=== PATIENT | female | born 1995 | race Two or more races ===

== ENCOUNTER 2017-07-29 04:37 | Inpatient (IN) | payer OTHER ==
[2017-07-29] MEDS ORDERED: BUTORPHANOL TARTRATE 1 MG/ML VIAL IVPB ONE (05:15)
[2017-07-29] MEDS ORDERED: MAGNESIUM 4GM/H20 - 100 ML IVPB SCH (05:15)
[2017-07-29] MEDS ORDERED: PROMETHAZINE HCL 25 MG/1 ML VIAL IVPUSH ONE (05:15)
[2017-07-29] MEDS ORDERED: MAGNESIUM SULFATE 20GM/500ML - 500 ML IVPB SCH (05:15)
[2017-07-29] MEDS ORDERED: ELECTROLYTE-148 SOLN 1,000 ML IV SCH (05:15)
--- NOTE | 2017-07-29 05:25 | HP ---
Past Medical History - Admission Chief Complaint: Labor pain History of Present Illness: 21 yo , @ 40 weeks gestation, EDC 07/25/17, presented c/o labor pain. Upon admission there was evidence of elevated blood pressure. She denies any headache, blurry vision nor epigastric pain. History Source: Patient Limitations to Obtaining History: No Limitations - Past Medical History ...: 1 ...Para: 0 ...EDC by Sono: 07/25/17 - Past Surgical History Past Surgical History: Yes: None Hx Myomectomy: No Hx Transabdominal Cerclage: No - Smoking History Smoking history: Never smoked - Alcohol/Substance Use Hx Alcohol Use: No History of Substance Use: reports: None - Social History Usual Living Arrangement: Yes: With Significant Other History of Recent Travel: No Home Medications - Allergies Allergies/Adverse Reactions: Allergies Allergy/AdvReac Type Severity Reaction Status Date / Time No Known Allergies Allergy Verified 06/08/16 09:15 - Home Medications Home Medications: Ambulatory Orders Oxycodone HCl/Acetaminophen [Percocet 5-325 mg Tablet] 1 tab PO Q4H #20 tablet MDD 6 06/09/16 Family Disease History - Family Disease History Family History: Unremarkable Review of Systems - Review of Systems Constitutional: reports: No Symptoms Eyes: reports: No Symptoms HENT: reports: No Symptoms Neck: reports: No Symptoms Cardiovascular: reports: No Symptoms Respiratory: reports: No Symptoms Gastrointestinal: reports: No Symptoms Genitourinary: reports: Pain Neurological: reports: No Symptoms Psychiatric: reports: No Symptoms Pain Intensity: 9 Physical Exam - Maternity Constitutional: Yes: Well Nourished Eyes: Yes: Conjunctiva Clear HENT: Yes: Atraumatic Neck: Yes: Supple Cardiovascular: Yes: Regular Rate and Rhythm Lungs: Clear to auscultation - Abdominal Exam/OB Number of Fetuses: Single Presentation: Vertex - Vaginal Exam/OB Dilatation (cm): 2 Effacement (%): 90 Amniotic Membrane Status: Intact Presentation: Vertex/Position Station: -2 - Physical Exam Edema: No Integumentary: Yes: WNL ...Motor Strength: WNL Psychiatric: Yes: Alert, Oriented Problem List - Problems (1) Pain during labor Code(s): O99.89 - OTH DISEASES AND CONDITIONS COMPL PREG/CHLDBRTH R52 - PAIN, UNSPECIFIED (2) PIH ( induced hypertension), antepartum Code(s): O13.9 - GESTATIONAL HTN W/O SIGNIFICANT PROTEINURIA, UNSP TRIMESTER Assessment/Plan IUP @ 40 weeks Active Labor induced hypertension PIH Labs Magnesium sulfate Analgesia as needed
[2017-07-29 05:45] LABS: BASOPHIL 0.4 % (0-2.0); EOSINOPHIL 1.1 % (0-4.5); MCH 24.2 pg (25.7-33.7); MCHC 31.7 g/dl (32.0-36.0); MEAN CELL VOLUME 76.2 fl (80-96); MEAN PLT VOLUME 9.7 fl (7.5-11.1); PLATELET COUNT 132 K/MM3 (134-434); RDW 15.4 % (11.6-15.6); WHITE BLOOD COUNT 9.1 K/mm3 (4.0-10.0)
[2017-07-29 06:00] LABS: ACTIVATED PTT 25.3 SECONDS (26.9-34.4)
[2017-07-29 06:01] LABS: INR 0.95 (0.82-1.09); PROTHROMBIN TIME (PATIENT) 10.4 SEC (9.98-11.88)
[2017-07-29 06:11] VITALS: BMI 24.6
[2017-07-29 06:24] LABS: ANION GAP 12 (8-16); CALCIUM 8.5 mg/dL (8.5-10.1); CO2 21 mmol/L (21-32); CREATININE 0.8 mg/dL (0.55-1.02); GLUCOSE,RANDOM 80 mg/dL (74-106); SGOT/AST 20 U/L (15-37); SGPT/ALT 13 U/L (12-78); URIC ACID 6.9 mg/dL (2.6-7.2)
[2017-07-29 07:29] LABS: URINE APPEARANCE CLEAR; URINE BILIRUBIN NEGATIVE (NEGATIVE); URINE BLOOD 2+ (NEGATIVE); URINE COLOR STRAW; URINE GLUCOSE (UA) NEGATIVE (NEGATIVE); URINE KETONE NEGATIVE (NEGATIVE); URINE LEUK ESTERASE NEGATIVE (NEGATIVE); URINE NITRITE NEGATIVE (NEGATIVE); URINE PROTEIN NEGATIVE (NEGATIVE); URINE UROBILINOGEN NEGATIVE mg/dL (0.2-1.0)
[2017-07-29 08:04] LABS: URINE BACTERIA RARE /hpf (NONE SEEN); URINE MUCUS RARE; URINE RBC 2 /hpf (0-3); URINE WBC 1 /hpf (3-5)
[2017-07-29] MEDS: FENTANYL/BUPIVACAINE/NS/PF - PCEA - 50 ML DISP.SYRIN EP SCH (10:45)
--- NOTE | 2017-07-29 14:47 | PN ---
Ante-Partal Exam - Subjective Vital Signs: Vital Signs Temperature 99.2 F 07/29/17 12:00 Pulse Rate 69 07/29/17 13:00 Respiratory Rate 18 07/29/17 13:00 Blood Pressure 117/78 07/29/17 13:00 O2 Sat by Pulse Oximetry (%) 97 07/29/17 13:00 Bleeding: No Headache: No Visual changes: No Right upper quadrant pain: No - Contractions Contractions: Yes Regularity: Regular Intensity: Mild Monitor Mode: External - Exam during Labor Heart Rate: 150 Variability: Moderate Heart Rate Location: Midline Category: I Monitor Accelerations: Present Monitor Decelerations: None Exam: Vaginal Dilatation (cm): 5 Effacement (%): 80 Amniotic Membrane Status: Ruptured Nitrazine Test: Positive Amniotic Fluid: Meconium Stained Meconium Staining: Moderate Presentation: Vertex Station: 0
[2017-07-29] MEDS ORDERED: OXYTOCIN 15 UNITS/ LR 250 ML 250 ML IV SCH (15:30)
--- NOTE | 2017-07-29 16:31 | PN ---
Ante-Partal Exam - Subjective Vital Signs: Vital Signs Temperature 99.2 F 07/29/17 12:00 Pulse Rate 67 07/29/17 15:30 Respiratory Rate 18 07/29/17 15:30 Blood Pressure 147/106 07/29/17 15:30 O2 Sat by Pulse Oximetry (%) 99 07/29/17 15:30 Bleeding: No Headache: No Visual changes: No Right upper quadrant pain: No - Contractions Contractions: Yes Regularity: Regular Intensity: Moderate Monitor Mode: External - Exam during Labor Heart Rate: 150 Variability: Moderate Heart Rate Location: Midline Category: I Monitor Accelerations: Present Monitor Decelerations: None Exam: Vaginal Dilatation (cm): 10 Amniotic Membrane Status: Ruptured Nitrazine Test: Positive Amniotic Fluid: Meconium Stained Meconium Staining: Light Presentation: Vertex Station: 0 - Assessment/Plan Assessment/Plan: as above will start to push cat 1
[2017-07-29] MEDS ORDERED: METHYLERGONOVINE MALEATE 0.2 MG/1 ML AMP IM PRN (17:40)
[2017-07-29] MEDS ORDERED: BENZOCAINE 28 GM HEMORRHOIDAL OINTMENT TP PRN (17:40)
[2017-07-29] MEDS ORDERED: BISACODYL 10 MG SUPP.RECT RC PRN (17:40)
[2017-07-29] MEDS ORDERED: IBUPROFEN 600 MG TABLET (FP) PO PRN (17:40)
[2017-07-29] MEDS ORDERED: WITCH HAZEL 50% (TUCKS) 40 PAD/JAR PAD TP PRN (17:40)
[2017-07-29] MEDS ORDERED: BENZOCAINE 20% 57 GM BOTTLE TP PRN (17:40)
[2017-07-29] MEDS ORDERED: OXYTOCIN 20 UNITS in 0.9% NS 1,000 ML IV SCH (17:45)
--- NOTE | 2017-07-29 17:47 | PN ---
Delivery - Delivery Vaginal Delivery: No Problems Type of Anesthesia: Local, Epidural Episiotomy/Laceration: Midline EBL (cc): 350 Delivery, Single - Feeding Plan Initial Plan: Elected not to breastfeed exclusively throughout hospitalization
[2017-07-30 06:59] LABS: BASOPHIL 0.4 % (0-2.0); EOSINOPHIL 0.5 % (0-4.5); MCH 24.1 pg (25.7-33.7); MCHC 31.9 g/dl (32.0-36.0); MEAN CELL VOLUME 75.6 fl (80-96); MEAN PLT VOLUME 9.1 fl (7.5-11.1); NEUTROPHILS 68.8 % (42.8-82.8); PLATELET COUNT 104 K/MM3 (134-434); RDW 15.6 % (11.6-15.6); WHITE BLOOD COUNT 9.7 K/mm3 (4.0-10.0)
--- NOTE | 2017-07-30 07:30 | PN ---
Post Progress Note Post Day: 1 Type of Delivery: Vital Signs: Vital Signs Temperature 99.0 F 07/30/17 05:00 Pulse Rate 74 07/30/17 05:00 Respiratory Rate 20 07/30/17 05:00 Blood Pressure 133/75 07/30/17 05:00 O2 Sat by Pulse Oximetry (%) 100 07/29/17 19:15 Breast Exam: Yes: Soft Uterus: Yes: Fundus Firm Abdomen/GI: Yes: Abdomen soft Lochia: Yes: Rubra Lochia, amount: Small Extremities: Yes: Calves non-tender Perineum: Yes: Intact Activity: Ambulating - Labs Labs: CBC WBC 9.7 K/mm3 (4.0-10.0) 07/30/17 06:25 RBC 3.13 M/mm3 (3.60-5.2) L D 07/30/17 06:25 Hgb 7.6 GM/dL (10.7-15.3) L D 07/30/17 06:25 Hct 23.7 % (32.4-45.2) L D 07/30/17 06:25 MCV 75.6 fl (80-96) L 07/30/17 06:25 MCH 24.1 pg (25.7-33.7) L 07/30/17 06:25 MCHC 31.9 g/dl (32.0-36.0) L 07/30/17 06:25 RDW 15.6 % (11.6-15.6) 07/30/17 06:25 Plt Count 104 K/MM3 (134-434) L D 07/30/17 06:25 MPV 9.1 fl (7.5-11.1) 07/30/17 06:25 Neutrophils % 68.8 % (42.8-82.8) 07/30/17 06:25 Lymphocytes % 22.2 % (8-40) 07/30/17 06:25 Monocytes % 8.1 % (3.8-10.2) 07/30/17 06:25 Eosinophils % 0.5 % (0-4.5) 07/30/17 06:25 Basophils % 0.4 % (0-2.0) 07/30/17 06:25 Retic Count 1.95 % (0.5-1.5) H 07/29/17 05:25 Assessment/Plan ppd 1 no issues iron
[2017-07-30] MEDS ORDERED: DIPHTH,PERTUSS(ACELL),TET 0.5 ML DISP.SYRIN IM ONE (10:00)
[2017-07-30] MEDS ORDERED: FLU VACC QS2017-18 36MOS UP/PF 60 MCG/0.5 ML SYRINGE IM ONE (10:00)
[2017-07-30] MEDS: LABETALOL HCL 100 MG TABLET (FP) PO SCH ×2 (13:00→21:45)
[2017-07-30] MEDS: FENTANYL/BUPIVACAINE/NS/PF - PCEA - 50 ML DISP.SYRIN EP SCH (19:32)
[2017-07-30] MEDS: SENNOSIDES/DOCUSATE COMBO (SENNA PLUS) TABLET (UD) PO PRN (21:46)
[2017-07-31] MEDS: ACETAMINOPHEN 325 MG TABLET (FP) PO PRN ×2 (07:59→20:17)
[2017-07-31] MEDS: LABETALOL HCL 200 MG TABLET (FP) PO SCH ×2 (09:41→22:18)
--- NOTE | 2017-07-31 11:56 | PN ---
Post Progress Note - Subjective Subjective: c/o headache in AM , after BP meds 200 mg labetalol taken she does not have headache she does not c/o dizziness Post Day: 2 Type of Delivery: Vital Signs: Vital Signs Temperature 99.3 F 07/31/17 09:23 Pulse Rate 71 07/31/17 09:23 Respiratory Rate 20 07/31/17 09:23 Blood Pressure 145/90 07/31/17 09:23 O2 Sat by Pulse Oximetry (%) 100 07/29/17 19:15 Selected Entries 07/30/17 07/30/17 07/31/17 17:00 21:00 01:00 Temperature 98.9 F 99.0 F 98.0 F Pulse Rate 83 65 80 Blood Pressure 146/84 147/80 131/83 07/31/17 06:00 Temperature 98.0 F Pulse Rate 71 Blood Pressure 160/100 Repeat BP at 11.30am 136/86 Breast Exam: Yes: Soft, Other (BF ). No: Engorged Uterus: Yes: Fundus Firm, Fundus below umbilicus Lochia, amount: Small Extremities: Yes: Calves non-tender Perineum: Yes: Episiotomy Activity: Ambulating - Labs Labs: CBC WBC 9.7 K/mm3 (4.0-10.0) 07/30/17 06:25 RBC 3.13 M/mm3 (3.60-5.2) L D 07/30/17 06:25 Hgb 7.6 GM/dL (10.7-15.3) L D 07/30/17 06:25 Hct 23.7 % (32.4-45.2) L D 07/30/17 06:25 MCV 75.6 fl (80-96) L 07/30/17 06:25 MCH 24.1 pg (25.7-33.7) L 07/30/17 06:25 MCHC 31.9 g/dl (32.0-36.0) L 07/30/17 06:25 RDW 15.6 % (11.6-15.6) 07/30/17 06:25 Plt Count 104 K/MM3 (134-434) L D 07/30/17 06:25 MPV 9.1 fl (7.5-11.1) 07/30/17 06:25 Neutrophils % 68.8 % (42.8-82.8) 07/30/17 06:25 Lymphocytes % 22.2 % (8-40) 07/30/17 06:25 Monocytes % 8.1 % (3.8-10.2) 07/30/17 06:25 Eosinophils % 0.5 % (0-4.5) 07/30/17 06:25 Basophils % 0.4 % (0-2.0) 07/30/17 06:25 Retic Count 1.95 % (0.5-1.5) H 07/29/17 05:25 Haptoglobin 90 mg/dL (34-200) 07/29/17 05:25 Assessment/Plan pt s/p vag, delivery, severe anemia , labile HTN on Labetalol 100 mg PO BID , changed to 200 mg bid in AM today. watch for BP Anemia counselled, declined Blood Transfusion Consult Dr Garza regarding discharge clearance
[2017-07-31] MEDS: FENTANYL/BUPIVACAINE/NS/PF - PCEA - 50 ML DISP.SYRIN EP SCH (12:58)
[2017-07-31] MEDS: SENNOSIDES/DOCUSATE COMBO (SENNA PLUS) TABLET (UD) PO PRN (20:18)
[2017-08-01] MEDS: LABETALOL HCL 200 MG TABLET (FP) PO SCH ×2 (08:24→10:05)
--- NOTE | 2017-08-01 09:58 | DS ---
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 Signs: Vital Signs Temperature 98.6 F 08/01/17 07:50 Pulse Rate 71 08/01/17 07:50 Respiratory Rate 20 08/01/17 07:50 Blood Pressure 141/91 08/01/17 09:25 O2 Sat by Pulse Oximetry (%) 100 07/29/17 19:15 Constitutional: Yes: Well Nourished Eyes: Yes: Conjunctiva Clear HENT: Yes: Atraumatic Neck: Yes: Supple Cardiovascular: Yes: Regular Rate and Rhythm Respiratory: Yes: Regular Gastrointestinal: Yes: Normal Bowel Sounds Pelvis: Yes: WNL External Genitalia: Yes: Normal Vaginal Exam: Yes: Normal Cervix: Yes: Normal Uterus: Yes: Firm ....Post : Yes: Uterus firm, Moderate lochia serosa Musculoskeletal: Yes: WNL Extremities: Yes: WNL Neurological: Yes: Alert, Oriented ...Motor Strength: WNL Psychiatric: Yes: Alert, Oriented Labs: CBC, BMP 07/30/17 06:25 07/29/17 05:25 Delivery - Delivery Vaginal Delivery: No Problems Type of Anesthesia: Local, Epidural Episiotomy/Laceration: Midline EBL (cc): 350 Delivery, Single - Stages of Labor Date 1st Stage Initiatied: 07/29/17 Time 1st Stage Initiated: 00:00 Date 2nd Stage Initiated: 07/29/17 Time 2nd Stage Initiated: 16:45 Date of Delivery: 07/29/17 Time of Delivery: 17:24 Time Placenta Delivered: 17:30 - 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 Labetalol prescribed as inpatient. Condition: Good - Instructions Diet, Activity, Other Instructions: see in 6 weeks Referrals: Richard Santos MD [Staff Physician] - Disposition: HOME - Home Medications Comprehensive Discharge Medication List: Ambulatory Orders Ferrous Gluconate [Iron] 256 mg PO DAILY 07/29/17 Vit No.130/Iron/FA [ Vitamins] 1 each PO DAILY 07/29/17 Labetalol HCl [Normodyne -] 200 mg PO BID #14 tablet 08/01/17
--- NOTE | 2017-08-01 11:28 | CON.NEP ---
Consult Consult Specialty:: Nephrology Referred by:: Dr. Garza Reason for Consultation:: Hypertension - History of Present Illness Chief Complaint: Labor History of Present Illness: This is a 21 year old woman with no significant PMhx who presented at 40 week gestation with labor pains and found to have elevated BP that remained elevated . Pt denies any history of hypertension or family history of hypertension. No LFT abnormalities or proteinuira noted this admission. Pt denies any uncontrolled pain. No SAAB, CP, blurry vision, N/V/D. Started on Labetalol Q12h, dose titated to 200mg yesterday. [employer] services used, [employer] # [id number] - History Source History Provided By: Patient, Caregiver Limitations to Obtaining History: No Limitations - Past Medical History ...LMP: 05/23/16 - Past Surgical History Past Surgical History: Yes: None - Alcohol/Substance Use Hx Alcohol Use: No History of Substance Use: reports: None - Smoking History Smoking history: Never smoked Have you smoked in the past 12 months: No - Social History History of Recent Travel: No Home Medications - Allergies Allergies/Adverse Reactions: Allergies Allergy/AdvReac Type Severity Reaction Status Date / Time No Known Allergies Allergy Verified 07/29/17 07:26 - Home Medications Home Medications: Ambulatory Orders Ferrous Gluconate [Iron] 256 mg PO DAILY 07/29/17 Vit No.130/Iron/FA [ Vitamins] 1 each PO DAILY 07/29/17 Labetalol HCl [Normodyne -] 200 mg PO BID #14 tablet 08/01/17 Family Disease History - Family Disease History Family History: Unremarkable Review of Systems - Review of Systems Constitutional: reports: No Symptoms Eyes: reports: No Symptoms HENT: reports: No Symptoms Neck: reports: No Symptoms Cardiovascular: reports: No Symptoms Respiratory: reports: No Symptoms Gastrointestinal: reports: No Symptoms Genitourinary: reports: No Symptoms Musculoskeletal: reports: No Symptoms Integumentary: reports: No Symptoms Nephrology Consult - Height Height: 5 ft - Weight Weight: 126 lb - BMI Body Mass Index (BMI): 24.6 - Lab Results CBC,BMP: CBC, BMP 07/30/17 06:25 07/29/17 05:25 Anion Gap: Anion Gap Anion Gap 12 (8-16) 07/29/17 05:25 - Physical Examination Vital Signs: Vital Signs Temperature 98.6 F 08/01/17 07:50 Pulse Rate 71 08/01/17 07:50 Respiratory Rate 20 08/01/17 07:50 Blood Pressure 141/91 08/01/17 09:25 O2 Sat by Pulse Oximetry (%) 100 07/29/17 19:15 Constitutional: Yes: No Distress Neck: Yes: Supple Cardiovascular: Yes: Regular Rate and Rhythm Respiratory: Yes: Regular, CTA Bilaterally Edema: No Problem List - Problems (1) PIH ( induced hypertension), antepartum Code(s): O13.9 - GESTATIONAL HTN W/O SIGNIFICANT PROTEINURIA, UNSP TRIMESTER (2) Status post vaginal delivery Code(s): ZBT1010 - Assessment/Plan 21 year old woman with no significant PMhx who presented at 40 week gestation with labor pains and found to have elevated BP that remained elevated # Hypertension w/o evidence of Preeclampsia or HELLP syndrome BP remains slightly above goal continue Labetalol 200mg Q12h if BP consistently below 140/90 by this afternoon can d/c home on present medications with close outpatient follow up low salt diet pain control w/o nsaids Thank you will follow Prakash Sauceda DO
[2017-08-01 14:02] VITALS: BP 151/87; PULSE 72; TEMP 98.5
== END 2017-08-01 19:50 | disposition home or self-care (01) | DRG 560 ==
LOC: JLDR 04:37 → J3W 20:05
PROVIDERS: ADMIT Obstetrics & Gynecology; ATTEND Obstetrics & Gynecology
PROC: 10E0XZZ Delivery of Products of Conception, External Approach (ICD-10-PCS; principal; 2017-07-29)
PROC: 0W8NXZZ Division of Female Perineum, External Approach (ICD-10-PCS; 2017-07-29)
DX: O13.3 Gestational [pregnancy-induced] hypertension without significant proteinuria, third trimester (principal); Z3A.40 40 weeks gestation of pregnancy; Z37.0 Single live birth
CPT/HCPCS: 36415; 59409; 80048; 81003; 81015; 82977; 83010; 84450; 84460; 84550; 85025; 85044; 85610; 85730; 86593; 86850; 86900; 86901; 90686; 90715; G0008

== ENCOUNTER 2019-12-10 21:30 | Emergency (ER) | payer OTHER ==
[2019-12-10 22:32] VITALS: BMI 20.8
[2019-12-10] MEDS ORDERED: SODIUM CHLORIDE 1,500 ML IV ONE (23:19)
[2019-12-10] MEDS ORDERED: ACETAMINOPHEN 500 MG TABLET (FP) PO ONE (23:21)
[2019-12-10] MEDS ORDERED: ACETAMINOPHEN 325 MG TABLET (FP) ONE (23:43)
[2019-12-11 00:11] LABS: BASO % 0.4 % (0-2.0); EOS % 0.1 % (0-4.5); HEMATOCRIT 33.7 % (32.4-45.2); HEMOGLOBIN 10.4 GM/dL (10.7-15.3); LYMPH % 12.1 % (8-40); MCH 20.4 pg (25.7-33.7); MCHC 30.8 g/dl (32.0-36.0); MEAN CELL VOLUME 66.1 fl (80-96); MEAN PLT VOLUME 8.1 fl (7.5-11.1); MONO % 7.7 % (3.8-10.2); NEUT % 79.7 % (42.8-82.8); PLATELET COUNT 232 K/MM3 (134-434); RDW 17.9 % (11.6-15.6); WHITE BLOOD COUNT 8.4 K/mm3 (4.0-10.0)
[2019-12-11 00:25] LABS: INR 1.13 (0.83-1.09); PROTHROMBIN TIME (PATIENT) 13.4 SEC (9.7-13.0)
[2019-12-11 00:27] LABS: ACTIVATED PTT 35.2 SECONDS (25.2-36.5)
[2019-12-11 00:36] LABS: ALBUMIN 3.9 g/dl (3.4-5.0); BILIRUBIN,TOTAL 0.2 mg/dL (0.2-1); BLOOD UREA NITROGEN 9.5 mg/dL (7-18); CALCIUM 8.4 mg/dL (8.5-10.1); CREATININE 0.8 mg/dL (0.55-1.3); POTASSIUM 3.6 mmol/L (3.5-5.1); TOT PROT 7.2 g/dl (6.4-8.2)
[2019-12-11 01:13] LABS: EPI CELLS 9.6 /HPF (0-5/HPF); HYALINE CASTS 5 /lpf (0-8); PH,URINE 7.5 (5.0-8.0); URINE APPEARANCE CLEAR; URINE BACTERIA 350.2 /hpf (NEGATIVE); URINE BILIRUBIN NEGATIVE (NEGATIVE); URINE COLOR YELLOW; URINE GLUCOSE (UA) NEGATIVE (NEGATIVE); URINE KETONE NEGATIVE (NEGATIVE); URINE LEUK ESTERASE TRACE (NEGATIVE); URINE NITRITE NEGATIVE (NEGATIVE); URINE PROTEIN NEGATIVE (NEGATIVE); URINE WBC 8 /hpf (0-5)
--- NOTE | 2019-12-11 01:15 | PDOC ---
History of Present Illness - General Chief Complaint: Headache Stated Complaint: HEADACHE/BODY CHILLS Time Seen by Provider: 12/10/19 22:51 History Source: Patient Exam Limitations: No Limitations - History of Present Illness Initial Comments: 12/11/19 01:11 HISTORY OF PRESENT ILLNESS: 24-year-old woman denies medical history presents emergency department for evaluation of fevers, chills, headache and moist cough for 5 days. Patient has been eating and drinking fine but now has had suprapubic pain which started 2 days ago. Patient denies any sick contacts. Patient states she waited till today to come to the emergency department as she has no insurance. She denies chest pain, shortness of breath, nausea or vomiting. No recent travel or sick contacts. PAST MEDICAL HISTORY: Denies past medical history SURGICAL HISTORY: Denies ALLERGIES: No known drug allergies REVIEW OF SYSTEMS General/Constitutional: +fever. Denies weakness, weight change. HEENT: Denies change in vision. Denies ear pain or discharge. +sore throat. Cardiovascular: Denies chest pain or shortness of breath. Respiratory: Moist productive cough. Denies wheezing, or hemoptysis. Gastrointestinal: Denies nausea, vomiting, diarrhea or constipation. Denies rectal bleeding. Genitourinary: Denies dysuria, frequency, or change in urination. Musculoskeletal: +myalgias. Denies neck or back pain. Skin and breasts: Denies rash or easy bruising. Neurologic: Denies headache, vertigo, loss of consciousness, or loss of sensation. Psychiatric: Denies depression or anxiety. Endocrine: Denies increased thirst. Denies abnormal weight change. Hematologic/Lymphatic: Denies anemia, easy bleeding, or history of blood clots. Allergic/Immunologic: Denies hives or skin allergy. Denies latex allergy. PHYSICAL EXAM General Appearance: Well-appearing, appropriately dressed. No apparent distress , no intoxication. HEENT: EOMI, PERRLA, normal voice, TMs retracted bilaterally. No conjunctival pallor. No photophobia, scleral icterus. Oropharynx erythematous without lesions or exudate. Cobblestoning noted in the posterior. No nasal discharge present. Neck: Supple. Trachea midline. No tenderness, rigidity, carotid bruit, stridor , or thyromegaly. Nontender anterior cervical lymphadenopathy present. Respiratory/Chest: Lungs CTAB. No shortness of breath, chest tenderness, respiratory distress, accessory muscle use. No crackles, rales, rhonchi, stridor , wheezing, dullness Cardiovascular: RRR. S1, S2. No JVD, murmur, bradycardia, tachycardia. Vascular Pulses: Dorsalis-Pedis (R): 2+, Dorsalis-Pedis (L): 2+ Gastrointestinal/Abdominal: Normal bowel sounds. Abdomen soft, non-distended. Suprapubic tenderness without rebound tenderness. No organomegaly, pulsatile mass, guarding, hernia, hepatomegaly, splenomegaly. Musculoskeletal/Extremities: Normal inspection. FROM of all extremities, normal capillary refill. Pelvis Stable. No CVA tenderness. No tenderness to extremities, pedal edema, swelling, erythema or deformity. Integumentary: Appropriate color, dry, warm. 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 Fully oriented, alert. Appropriate mood/affect. Motor strength 5/5. No appreciable EOM palsy, facial droop or sensory deficit. Past History - Past Medical History Allergies/Adverse Reactions: Allergies Allergy/AdvReac Type Severity Reaction Status Date / Time No Known Allergies Allergy Verified 07/29/17 07:26 Home Medications: Ambulatory Orders Ferrous Gluconate [Iron] 256 mg PO DAILY 07/29/17 Vit No.130/Iron/Folic [ Vitamins] 1 each PO DAILY 07/29/17 Labetalol HCl [Normodyne -] 200 mg PO BID #14 tablet 08/01/17 Asthma: No Cancer: No Cardiac Disorders: No COPD: No Diabetes: No HTN: No Seizures: No Thyroid Disease: No - Immunization History Td Vaccination: Yes TDAP Vaccination: Yes Immunization Up to Date: Yes - Psycho Social/Smoking Cessation Hx Smoking History: Never smoked Have you smoked in the past 12 months: No Information on smoking cessation initiated: No Hx Alcohol Use: No Drug/Substance Use Hx: No Substance Use Type: None Hx Substance Use Treatment: No *Physical Exam - Vital Signs Last Vital Signs Temp Pulse Resp BP Pulse Ox 101.5 F H 111 H 20 92/59 L 98 12/10/19 22:25 12/10/19 22:25 12/10/19 22:25 12/10/19 22:25 12/10/19 22:25 ED Treatment Course - LABORATORY CBC & Chemistry Diagram: 12/10/19 23:56 12/10/19 23:56 - ADDITIONAL ORDERS Additional order review: Laboratory Results 12/10/19 12/10/19 12/10/19 23:56 23:56 23:56 PT with INR INR PTT (Actin FS) Sodium 136 Potassium 3.6 Chloride 106 Carbon Dioxide 23 Anion Gap 6 L BUN 9.5 Creatinine 0.8 Est GFR (CKD-EPI)AfAm 121.29 Est GFR (CKD-EPI)NonAf 104.65 Random Glucose 105 Lactic Acid 1.1 Calcium 8.4 L Total Bilirubin 0.2 AST 13 L ALT 19 Alkaline Phosphatase 72 Troponin I < 0.02 Total Protein 7.2 Albumin 3.9 12/10/19 23:56 PT with INR 13.40 H INR 1.13 H PTT (Actin FS) 35.2 Sodium Potassium Chloride Carbon Dioxide Anion Gap BUN Creatinine Est GFR (CKD-EPI)AfAm Est GFR (CKD-EPI)NonAf Random Glucose Lactic Acid Calcium Total Bilirubin AST ALT Alkaline Phosphatase Troponin I Total Protein Albumin 12/10/19 23:56 RBC 5.10 MCV 66.1 L MCHC 30.8 L RDW 17.9 H MPV 8.1 D Neutrophils % 79.7 Lymphocytes % 12.1 D Monocytes % 7.7 Eosinophils % 0.1 Basophils % 0.4 - RADIOLOGY Radiology Studies Ordered: Category Date Time Status CHEST PA & LAT [RAD] Stat Radiology 12/10/19 23:20 Ordered - Medications Given in the ED: ED Medications Discontinued Medications Generic Name Dose Route Start Last Admin Trade Name Freq PRN Reason Stop Dose Admin Acetaminophen 1,000 mg 12/10/19 23:21 12/11/19 00:02 Tylenol - PO 12/10/19 23:22 1,000 mg ONCE ONE Administration Medical Decision Making - Medical Decision Making 12/11/19 01:13 A/P: 24-year-old woman with 5 days of flulike symptoms and 1 day of suprapubic pain Physical exam is consistent with an upper respiratory viral illness most likely influenza. Patient has suprapubic tenderness and meet Sirs criteria will initiate sepsis work-up. Although likely source is viral given suprapubic pain cannot rule out bacterial etiology of urinary origin. 12/11/19 01:16 White count is 8.4. Chemistries are unremarkable with a lactic acid of 1.1. Urinalysis is not suggestive of infection. Influenza B positive. As patient is outside the window will defer treatment at this time. Supportive treatment has been discussed with the patient. Discharge home Discharge - Discharge Information Problems reviewed: Yes Clinical Impression/Diagnosis: Influenza B Condition: Fair Disposition: HOME - Admission No - Follow up/Referral - Patient Discharge Instructions Additional Instructions: Rest, drink lots of fluids: Teas, water, soups, Pedialyte Saltwater gargles Steamy showers/seem to face break up mucus Avoid contact with others until fevers and cough resolved Lots of handwashing and good hygiene Continue [id number] medications for symptomatic relief Tylenol or Motrin for fever and pain Followup with private physician in one to 2 days as needed Return to emergency department for worsened symptoms, fevers, dehydration [place] katty mayaos lquidos: ts, agua, sopas, Pedialyte grgaras de agua salada [place] Steamy / parecen enfrentar aflojar la mucosidad Evite el contacto con otras personas hasta que la fiebre y la tos resueltos Un montn de lavado de chantal y la higiene Continuar [id number] medicamentos para el alivio sintomtico Tylenol o Motrin para la fiebre y el dolor Followup con el mdico privado en [place] o 2 salmeron segn sea necesario Regresar a urgencias por sntomas empeoraron, fiebres, deshidratacin - Post Discharge Activity Work/Back to School Note: Back to Work
[2019-12-11 01:30] VITALS: BP 91/57; PULSE 94; TEMP 99.3
[2019-12-11 01:38] LABS: VENOUS PC02 38.1 mmHg (38-52); VENOUS PH 7.37 (7.31-7.41); VENOUS PO2 75.6 mmHg (28-48)
[2019-12-11 04:38] LABS: ANISOCYTOSIS 2+; MACROCYTOSIS 0; OVALOCYTE 1+; PLATELET ESTIMATE NORMAL
== END 2019-12-11 01:30 | disposition home or self-care (01) ==
LOC: JER 21:30
PROC: 3E0337Z Introduction of Electrolytic and Water Balance Substance into Peripheral Vein, Percutaneous Approach (ICD-10-PCS; principal; 2019-12-10)
DX: J10.1 Influenza due to other identified influenza virus with other respiratory manifestations (principal); R10.30 Lower abdominal pain, unspecified
CPT/HCPCS: 36415; 80053; 81003; 82803; 83605; 84484; 85025; 85610; 85730; 87040; 87086; 87804; 99282-25; J7030

== ENCOUNTER 2021-05-17 18:19 | Emergency (ER) | payer OTHER ==
[2021-05-17 18:46] VITALS: BP 108/78; PULSE 72; TEMP 97.9; BMI 21.4
[2021-05-17 21:07] LABS: PH,URINE 5.5 (5.0-8.0); URINE APPEARANCE CLOUDY; URINE BILIRUBIN NEGATIVE (NEGATIVE); URINE COLOR YELLOW; URINE GLUCOSE (UA) NEGATIVE (NEGATIVE); URINE KETONE TRACE (NEGATIVE); URINE LEUK ESTERASE NEGATIVE (NEGATIVE); URINE NITRITE NEGATIVE (NEGATIVE); URINE PROTEIN TRACE (NEGATIVE)
[2021-05-17 21:10] LABS: HCG,QUALITATIVE URINE Negative
== END 2021-05-17 21:45 | disposition home or self-care (01) ==
LOC: JER 18:19
DX: R11.2 Nausea with vomiting, unspecified (principal)
CPT/HCPCS: 81003; 84703; 87086; 99283-25